=== PATIENT | male | born 1950 | race Caucasian/White ===

== ENCOUNTER → 2021-07-11 | Outpatient (CLI) | payer MEDICARE, OTHER | LOC: HEART 5 09:17 | DX: J44.9 Chronic obstructive pulmonary disease, unspecified (principal); J45.40 Moderate persistent asthma, uncomplicated | CPT/HCPCS: 94060; 94729; 95012 ==

== ENCOUNTER 2021-10-09 21:23 | Inpatient (IN) | payer MEDICARE, OTHER ==
[~2021-10-09] VITALS: Ht 177.8 cm; Wt 95.3 kg
[2021-10-09 21:51] LABS: HEMOGLOBIN 15.3 gm/dl (14.0-17.5); RED BLOOD COUNT 5.07 M/UL (4.20-5.50); WHITE BLOOD COUNT 10.9 K/UL (4.5-11.0)
[2021-10-09 22:39] LABS: BUN/CREATININE RATIO 27 (0-10)
[2021-10-10] MEDS ORDERED: PROAIR DIGIHAL90 MCG INH (11:34)
[2021-10-10] MEDS ORDERED: LEVOTHYROXINE75 MCG PO (11:35)
[2021-10-10] MEDS ORDERED: ATORVASTATIN CA10 MG PO (11:35)
[2021-10-10] MEDS ORDERED: TRELEGY ELLIPT1 EAC1 INH (11:35)
[2021-10-10] MEDS ORDERED: THEOPHYLLINE400 MG PO (11:36)
[2021-10-10] MEDS ORDERED: SINGULAIR10 MG PO (11:36)
[2021-10-10] MEDS ORDERED: ASPIRIN EC81 MG PO (11:37)
[2021-10-10] MEDS ORDERED: IPRAT-ALBUT 0.5-3 ML NEB (11:37)
[2021-10-11 03:33] LABS: WHITE BLOOD COUNT 8.8 K/UL (4.5-11.0)
[2021-10-11 03:36] LABS: HEMOGLOBIN 13.3 gm/dl (14.0-17.5); RED BLOOD COUNT 4.31 M/UL (4.20-5.50)
[2021-10-11 04:24] LABS: BUN/CREATININE RATIO 29 (0-10)
[2021-10-11 20:12] LABS: BORDETELLA PARAPERTUSSIS Not Detected (Not Detectd); BORDETELLA PERTUSSIS Not Detected (Not Detectd); CHLAMYDIA PNEUMONIAE Not Detected (Not Detectd); CORONAVIRUS HKU1 Not Detected (Not Detectd); CORONAVIRUS NL63 Not Detected (Not Detectd); CORONAVIRUS OC43 Not Detected (Not Detectd); CORONOAVIRUS 229E Not Detected (Not Detectd); HUMAN METAPNEUMOVIRUS Not Detected (Not Detectd); HUMAN RHINOVIRUS/ENTEROVIRUS Not Detected (Not Detectd); INFLUENZA A Not Detected (Not Detectd); INFLUENZA B Not Detected (Not Detectd); MYCOPLASMA PNEUMONIAE Not Detected (Not Detectd); PARAINFLUENZA VIRUS 1 Not Detected (Not Detectd); PARAINFLUENZA VIRUS 2 Not Detected (Not Detectd); PARAINFLUENZA VIRUS 3 Not Detected (Not Detectd); PARAINFLUENZA VIRUS 4 Not Detected (Not Detectd); RESPIRATORY SYNCYTIAL VIRUS Not Detected (Not Detectd)
[2021-10-11 21:28] LABS: SARS-CoV-2 DETECTED (Not Detectd)
--- NOTE | 2021-10-12 01:31 | NUR ---
LATE ENTRY 1224 AM 10/12/[address] MOORE OF PTS HR BEING 48. ORDERS RECIEVED AND PLACED.
--- NOTE | 2021-10-12 01:48 | NUR ---
NOTIFIED DR. MOORE OF PTS EKG RESULTS.
[2021-10-12 16:32] LABS: BUN/CREATININE RATIO 30 (0-10)
[2021-10-13 03:47] LABS: RED BLOOD COUNT 4.27 M/UL (4.20-5.50); WHITE BLOOD COUNT 6.9 K/UL (4.5-11.0)
[2021-10-13 04:05] LABS: BUN/CREATININE RATIO 31 (0-10)
[2021-10-14 04:02] LABS: BUN/CREATININE RATIO 42 (0-10)
[2021-10-14 18:11] LABS: ORGANISM ID Not indicated. (.); SPECIMEN SOURCE Urine (.); STREPTOCOCCUS PNEUMONIAE AG Negative (Negative)
--- NOTE | 2021-10-15 07:57 | NUR ---
PT EATING BREAKFAST, BS 63 AT THIS TIME. MD AWARE WITH NO NEW ORDERS NOTED
[2021-10-15] MEDS ORDERED: DECADRON6 MG PO (09:37)
[2021-10-15] MEDS ORDERED: ELIQUIS 5 MG TAB5 MG PO (09:37)
[2021-10-15 09:51] LABS: HEMOGLOBIN 13.7 gm/dl (14.0-17.5); RED BLOOD COUNT 4.48 M/UL (4.20-5.50)
[2021-10-15 09:54] LABS: WHITE BLOOD COUNT 11.9 K/UL (4.5-11.0)
[2021-10-15 10:19] LABS: BUN/CREATININE RATIO 36 (0-10)
== END 2021-10-15 11:07 | disposition home or self-care (01) | DRG 177 ==
LOC: ER1 21:23 → CDU 10-10 02:22 → PROG CARE 10-10 02:22
PROVIDERS: Emergency Medicine; Internal Medicine; Internal Medicine Infectious Disease; Internal Medicine Pulmonary Disease; ADMIT Internal Medicine
PROC: 8E0ZXY6 Isolation (ICD-10-PCS; principal; 2021-10-10)
PROC: 5A0945A Assistance with Respiratory Ventilation, 24-96 Consecutive Hours, High Flow/Velocity Cannula (ICD-10-PCS; 2021-10-10)
PROC: 3E0333Z Introduction of Anti-inflammatory into Peripheral Vein, Percutaneous Approach (ICD-10-PCS; 2021-10-10)
DX: U07.1 COVID-19 (principal); J12.82 Pneumonia due to coronavirus disease 2019; J96.21 Acute and chronic respiratory failure with hypoxia; J15.9 Unspecified bacterial pneumonia; J98.11 Atelectasis; J44.0 Chronic obstructive pulmonary disease with (acute) lower respiratory infection; I82.4Z3 Acute embolism and thrombosis of unspecified deep veins of distal lower extremity, bilateral; I82.442 Acute embolism and thrombosis of left tibial vein; E11.65 Type 2 diabetes mellitus with hyperglycemia; T38.0X5A Adverse effect of glucocorticoids and synthetic analogues, initial encounter; I10 Essential (primary) hypertension; E11.9 Type 2 diabetes mellitus without complications; R00.1 Bradycardia, unspecified; E78.5 Hyperlipidemia, unspecified; J84.178 Other interstitial pulmonary diseases with fibrosis in diseases classified elsewhere; I25.10 Atherosclerotic heart disease of native coronary artery without angina pectoris; J47.9 Bronchiectasis, uncomplicated; G47.33 Obstructive sleep apnea (adult) (pediatric); Z99.81 Dependence on supplemental oxygen; Z82.49 Family history of ischemic heart disease and other diseases of the circulatory system; Z91.041 Radiographic dye allergy status; Z91.048 Other nonmedicinal substance allergy status; Z79.82 Long term (current) use of aspirin; Z79.899 Other long term (current) drug therapy; Z79.01 Long term (current) use of anticoagulants
CPT/HCPCS: 0240U; 36415; 36600; 71045; 80048; 80053; 80198; 80202; 82103; 82550; 82553; 82728; 82803; 82962; 83036; 83605; 83615; 83735; 83874; 83880; 84100; 84439; 84443; 84484; 85025; 85027; 85379; 85384; 86140; 87040; 87081; 87278; 87633; 87899; 93005; 93970; 94640; 94660; 94664; 94760; 96374; 96375; 96376; 97110; 97110-GP-CQ; 97116-GP-CQ; 97161; 97166; 97168; 97530; 99285; J0456; J0692; J1100; J1200; J1650; J3370; J7030; J7060; J7070; Q9967